=== PATIENT | male | born 1960 | race Caucasian/White ===

== ENCOUNTER 2016-04-23 10:18 | Inpatient (IN) | payer OTHER ==
[~2016-04-23] VITALS: Ht 172.7 cm; Wt 69.8 kg
[2016-04-23] VITALS (7 sets, daily range): BP systolic 117–185; RESP 16–18; TEMP 97.9–98.2; Ht 172.7 cm; Wt 69.8 kg
[2016-04-23] MEDS ORDERED: KCL CR 20 MEQ TAB PO ONE (11:42)
[2016-04-23] MEDS ORDERED: NITROGLYCERIN 2% OINT 1 INCH PKT TOPICAL ONE (12:11)
[2016-04-23] MEDS ORDERED: ENOXAPARIN 80 MG/0.8 ML SYR SUBQ ONE (12:11)
[2016-04-23] MEDS ORDERED: DOCUSATE SOD 100 MG CAP PO PRN (12:45)
[2016-04-23] MEDS ORDERED: ONDANSETRON 4 MG VIAL IV PRN (12:45)
[2016-04-23] MEDS ORDERED: ALU/MAG/SIM 30 ML UDC PO PRN ×2 (12:45→17:25)
[2016-04-23] MEDS ORDERED: ACETAMINOPHEN 325 MG TAB PO PRN (12:45)
[2016-04-23] MEDS ORDERED: MORPHINE 2 MG/ML SYR IV PRN (12:45)
[2016-04-23] MEDS ORDERED: TRAMADOL 50 MG TAB PO PRN (12:45)
[2016-04-23] MEDS ORDERED: SALINE FLUSH 10 ML FLUSH PRN (12:45)
[2016-04-23] MEDS ORDERED: NITROGLYCERIN SL 0.4 MG TAB SL PRN (12:45)
[2016-04-23] MEDS ORDERED: TEMAZEPAM 7.5 MG CAP PO PRN (12:45)
[2016-04-23] MEDS ORDERED: ASPIRIN 81 MG CHEW TAB PO ONE (12:50)
[2016-04-23] MEDS: LISINOPRIL 20 MG TAB PO SCH (13:00)
[2016-04-23] MEDS: amLODIPine 10 MG TAB PO SCH (13:00)
[2016-04-23] MEDS: MAGNESIUM SULF 1 GM/100 ML 100 ML IV SCH ×2 (15:10→17:30)
[2016-04-23] MEDS: LORAZEPAM 0.5 MG TAB PO PRN (15:17)
[2016-04-23] MEDS ORDERED: PROMETHAZINE 25 MG SUPP RECTAL PRN (17:25)
[2016-04-23] MEDS ORDERED: PROMETHAZINE 25 MG TAB PO PRN (17:25)
[2016-04-23] MEDS: THIAMINE 100 MG TAB PO SCH (18:23)
[2016-04-23] MEDS: FOLIC ACID 1 MG TAB PO SCH (18:23)
[2016-04-23] MEDS: *HOME MEDS KEPT IN PHARMACY XX SCH (20:00)
[2016-04-23] MEDS: LORAZEPAM 2 MG TAB PO PRN (20:18)
[2016-04-23] MEDS: Atorvastatin 40 MG TAB PO SCH (20:18)
[2016-04-23] MEDS: ENOXAPARIN 60 MG/0.6 ML SYR SUBQ SCH (20:19)
[2016-04-23] MEDS: SALINE FLUSH 10 ML FLUSH SCH (20:19)
[2016-04-23] MEDS ORDERED: Carvedilol 3.125 MG TAB PO SCH (21:00)
[2016-04-23] MEDS ORDERED: ENOXAPARIN 80 MG/0.8 ML SYR SUBQ SCH (23:45)
[2016-04-24] VITALS (18 sets, daily range): BP systolic 117–168; RESP 16–20; TEMP 97.5–98.4
[2016-04-24] MEDS: PANTOPRAZOLE 40 MG TAB PO SCH (05:15)
[2016-04-24] MEDS: LORAZEPAM 2 MG TAB PO PRN (05:15)
[2016-04-24] MEDS: SODIUM CHLORIDE 0.9% FLUSH BAG 500 ML IV SCH (05:16)
[2016-04-24] MEDS: ENOXAPARIN 60 MG/0.6 ML SYR SUBQ SCH (08:00)
[2016-04-24] MEDS: *HOME MEDS KEPT IN PHARMACY XX SCH ×2 (08:00→19:35)
[2016-04-24] MEDS: SALINE FLUSH 10 ML FLUSH SCH ×2 (08:40→20:00)
[2016-04-24] MEDS: ASPIRIN EC 81 MG TAB PO SCH (08:40)
[2016-04-24] MEDS: Carvedilol 6.25 MG TAB PO SCH ×2 (08:40→20:21)
[2016-04-24] MEDS: ALLOPURINOL 300 MG TAB PO SCH (09:00)
[2016-04-24] MEDS: amLODIPine 10 MG TAB PO SCH (09:48)
[2016-04-24] MEDS: LISINOPRIL 20 MG TAB PO SCH (09:48)
[2016-04-24] MEDS ORDERED: KCL 20 MEQ/15 ML UDC PO ONE (10:45)
[2016-04-24] MEDS: POTASSIUM CHLORIDE PREMIX 10 MEQ in PART FILL PIGGYBACK 1 EA IV SCH ×4 (10:52→15:37)
[2016-04-24] MEDS: FOLIC ACID 1 MG TAB PO SCH (14:15)
[2016-04-24] MEDS: THIAMINE 100 MG TAB PO SCH (14:15)
[2016-04-24] MEDS: MULTIVITS/MINERALS (THERAGRAN M) TAB PO SCH (14:15)
[2016-04-24] MEDS ORDERED: CLOPIDOGREL 75 MG TAB PO ONE (14:20)
[2016-04-24] MEDS: LORAZEPAM 0.5 MG TAB PO PRN ×2 (15:19→23:29)
[2016-04-24] MEDS: MAGNESIUM SULF 1 GM/100 ML 100 ML IV SCH ×2 (16:42→17:53)
[2016-04-24] MEDS: Atorvastatin 40 MG TAB PO SCH (20:21)
[2016-04-24] MEDS ORDERED: LIDOCAINE 2% 20 ML ONE (22:24)
[2016-04-24] MEDS ORDERED: FENTANYL 100 MCG/2 ML AMP ONE (22:24)
[2016-04-24] MEDS ORDERED: MIDAZOLAM 2 MG/2 ML INJ ONE (22:24)
[2016-04-25] MEDS: SODIUM CHLORIDE 0.9% FLUSH BAG 500 ML IV SCH (03:59)
[2016-04-25 04:02] VITALS: BP_SYST 150; RESP 16; TEMP 98
[2016-04-25] MEDS: PANTOPRAZOLE 40 MG TAB PO SCH (06:18)
[2016-04-25] MEDS: *HOME MEDS KEPT IN PHARMACY XX SCH ×2 (07:29→12:50)
[2016-04-25 07:46] VITALS: BP_SYST 156; RESP 16; TEMP 98.1
[2016-04-25] MEDS: FOLIC ACID 1 MG TAB PO SCH (08:17)
[2016-04-25] MEDS: ASPIRIN EC 81 MG TAB PO SCH (08:17)
[2016-04-25] MEDS: MULTIVITS/MINERALS (THERAGRAN M) TAB PO SCH (08:17)
[2016-04-25] MEDS: amLODIPine 10 MG TAB PO SCH (08:17)
[2016-04-25] MEDS: THIAMINE 100 MG TAB PO SCH (08:17)
[2016-04-25] MEDS: ALLOPURINOL 300 MG TAB PO SCH (08:17)
[2016-04-25] MEDS: Carvedilol 6.25 MG TAB PO SCH (08:17)
[2016-04-25] MEDS: SALINE FLUSH 10 ML FLUSH SCH (08:17)
[2016-04-25] MEDS: LISINOPRIL 20 MG TAB PO SCH (08:18)
[2016-04-25] MEDS ORDERED: CLOPIDOGREL 75 MG TAB PO SCH (09:00)
[2016-04-25] MEDS: LORAZEPAM 0.5 MG TAB PO PRN (09:25)
[2016-04-25 12:00] VITALS: BP_SYST 150; RESP 18; TEMP 98.4
[2016-04-25 12:21] VITALS: BP_SYST 150; RESP 18; TEMP 98.4
== END 2016-04-25 12:52 | disposition home or self-care (01) | DRG 282 ==
LOC: ENRESERVTM → ENRESERVDT → ER 10:18 → OBSVTOIN 12:56 → EMR 12:56 → PCU2 13:42 → PCU 15:52 → OBSVTOIN 04-24 12:02 → ENPENDDIS 04-24 12:02 → INTOOBSV 04-24 12:02 → UNDODISIN 04-25 12:52
PROVIDERS: ADMIT Internal Medicine Cardiovascular Disease; ATTEND Internal Medicine Cardiovascular Disease
PROC: 4A023N7 Measurement of Cardiac Sampling and Pressure, Left Heart, Percutaneous Approach (ICD-10-PCS; principal; 2016-04-24)
PROC: B2151ZZ Fluoroscopy of Left Heart using Low Osmolar Contrast (ICD-10-PCS; 2016-04-24)
CPT/HCPCS: 36415; 71010; 80048; 80053; 80061; 82550; 82553; 83735; 84484; 85025; 85610; 85730; 93005; 93306; 93458; 94799; 96372